=== PATIENT | male | born 1960 | race Caucasian/White ===

== ENCOUNTER 2022-05-28 11:09 | Inpatient (IN) | payer SELFPAY ==
[2022-05-28] VITALS (129 sets, daily range): BP systolic 81–180; BP diastolic 54–121; PULSE 72–142; RESP 12–27; O2SAT 73–100; BMI 23.6; BMI 21.1
--- NOTE | 2022-05-28 11:33 | CT_ITS ---
WS: [id number] CT HEAD TECHNIQUE: Noncontrast CT of the head obtained from the skullbase to the vertex. CLINICAL INFORMATION: seizure new onset COMPARISON: None. DLP: 2121.[address] scans at [facility] use at least one of these dose optimization techniques: automated e xposure control; mA and/or kV adjustment per patient size (includes targeted exams where dose is matc hed to clinical indication); or iterative reconstruction. FINDINGS: No evidence of intracranial hemorrhage or mass effect. Ventricular system and basal cisterns are kilgore nt. Mild small vessel changes with mild parenchymal volume loss. No extra-axial fluid collections. No evidence of mass or mass effect. Vascular calcification. Mild mucosal thickening in the paranasal sinuses with polypoid mucosal thickening. Mastoid air cells are well aerated. Vascular calcification. CT/CT head wo con* [id number] IMPRESSION: 1. No evidence of intracranial hemorrhage or mass effect. 2. Mild small vessel changes. Mild parenchymal volume loss. 3. No acute intracranial findings.
--- NOTE | 2022-05-28 11:35 | W.ED.SEIZURE ---
HPI - Seizure General: Chief Complaint: Seizure Stated Complaint: Post Seizure Time Seen by Provider: 05/28/22 11:12 History of Present Illness: HPI Narrative: Patient is brought in by EMS with concerns for a seizure. Apparently patient was traveling home with family in the back of the vehicle when he started having seizure-like activity. The family pulled over and called EMS who met them on the side of the road. Per EMS the patient has no history of seizures. When I walked into the room the patient was in soft restraints due to confusion, however he was alert and oriented when I arrived and I was able to undo the restraints. He states he does not know why he is here but tells me who he is, what year it is, where he was headed and where he lives. He is somewhat somnolent on exam, but easily answers questions and performs commands appropriately. He is mildly tachycardic. He does admit to drinking yesterday, however states he does not drink every day. He did receive Ativan in route. Associated symptoms: Deny chest pain or fever(s) Review of Systems Const: Denies: fever(s) or body aches Eyes: Denies: change in vision or blurry vision ENMT: Denies: throat pain or odynophagia Card: Denies: chest pain or palpitations Resp: Denies: dyspnea or productive cough GI: Denies: abdominal pain, nausea or vomiting : Denies: flank pain or dysuria Musc: Denies: neck pain or back pain Skin/Breast: Denies: rash or pruritus Neuro: Denies: headache(s) or numbness in extremities Psych: Denies: anxiety or change in appetite Endo: Denies: polyuria or excessive sweating Physical Exam Const: COMMON NORMALS: no acute distress, patient oriented x3 and healthy appearing OTHER: Somnolent throughout exam, however easily awakens to voice and answers questions appropriately HENMT: COMMON NORMALS: normocephalic and atraumatic HEAD & SCALP: normocephalic and atraumatic OTHER: Bruising to the anterior tongue Eye: COMMON NORMALS: Equal, round and reactive pupils present and EOMs intact bilaterally PUPIL: Yes Equal, round and reactive pupils present OTHER: Bilateral conjunctival injection Neck/C-Spine: COMMON NORMALS: full ROM and supple Resp: COMMON NORMALS: normal respiratory effort, No retractions and No use of accessory muscles Cardio: COMMON NORMALS: regular rhythm RHYTHM: regular rhythm OTHER: Tachycardia GI: COMMON NORMALS: Normal to inspection, nondistended, normoactive bowel sounds present, Soft to palpation and non-tender PALPATION: Yes Soft to palpation Back/Pelvis: COMMON NORMALS: thoracic and lumbar spine normal to inspection and no thoracic nor lumbar tenderness Extremity: COMMON NORMALS: normal to inspection and full ROM Neuro: COMMON NORMALS: patient oriented x3 Psych: COMMON NORMALS: mental status grossly normal and cooperative Skin: COMMON NORMALS: no rashes or lesions noted and no wounds GENERAL SKIN EXAM: no rashes or lesions noted Course Vital Signs: Vital signs: Vital Signs Pulse Rate 102 H 05/28/22 14:15 Respiratory Rate 19 H 05/28/22 14:15 Blood Pressure 92/65 05/28/22 14:00 Pulse Oximetry 96 05/28/22 14:15 Oxygen Delivery Me thod 05/28/22 11:11 MDM - Seizure MDM Narrative Medical decision making narrative: Patient is brought in by EMS with concerns for a seizure. Apparently patient was traveling home with family in the back of the vehicle when he started having seizure-like activity. The family pulled over and called EMS who met them on the side of the road. Per EMS the patient has no history of seizures. When I walked into the room the patient was in soft restraints due to confusion, however he was alert and oriented when I arrived and I was able to undo the restraints. He states he does not know why he is here but tells me who he is, what year it is, where he was headed and where he lives. He is somewhat somnolent on exam, but easily answers questions and performs commands appropriately. He is mildly tachycardic. He does admit to drinking yesterday, however states he does not drink every day. He did receive Ativan in route. Will check labs, CT, and reassess. On reassessment the patient has become confused and combative. We had to put soft restraints on his arms to keep him from pulling the IV out. We gave him IM Haldol. I discussed the case with the cosmetic surgeon and we will start him on a Precedex drip and admit to the ICU for further work-up and treatment of his hyponatremia and alcohol withdrawal seizure Lab Data 05/28/22 13:33 05/28/22 13:33 Labs: Radiology Impressions Head CT 05/28/22 11:33 IMPRESSION: 1. No evidence of intracranial hemorrhage or mass effect. 2. Mild small vessel changes. Mild parenchymal volume loss. 3. No acute intracranial findings. Laboratory Results WBC 7.5 10^3/uL (4.0-10.0) 05/28/22 13:33 RBC 3.63 10^6/uL (4.1-5.3) L 05/28/22 13:33 Hgb 12.8 g/dL (11.7-16.6) 05/28/22 13:33 Hct 34.3 % (42.0-52.0) L 05/28/22 13:33 MCV 94.5 fl (80-94) H 05/28/22 13:33 MCH 35.3 pg (28.0-34.0) H 05/28/22 13:33 MCHC 37.3 g/dL (30.0-36.0) H 05/28/22 13:33 RDW 13.0 % (12.1-15.1) 05/28/22 13:33 Plt Count 162 10^3/cmm (130-400) 05/28/22 13:33 MPV 9.7 fL (7.4-10.4) 05/28/22 13:33 Neut % (Auto) 86.3 % 05/28/22 13:33 Lymph % (Auto) 5.2 % 05/28/22 13:33 [place] % (Auto) 7.6 % 05/28/22 13:33 Eos % (Auto) 0.1 % 05/28/22 13:33 Baso % (Auto) 0.3 % 05/28/22 13:33 Neut # (Auto) 6.44 10^3/uL (1.8-7.7) 05/28/22 13:33 Lymph # (Auto) 0.4 10^3/uL (0.8-4.8) L 05/28/22 13:33 [place] # (Auto) 0.6 10^3/uL (0.2-0.9) 05/28/22 13:33 Eos # (Auto) 0.0 10^3/uL (0.0-0.8) 05/28/22 13:33 Baso # (Auto) 0.0 10^3/uL (0.0-0.1) 05/28/22 13:33 Nucleated RBC % (auto) 0 % 05/28/22 13:33 Nucleated RBCs # 0.0 /100WBC 05/28/22 13:33 Sodium 118 mmol/L (136-145) L* 05/28/22 13:33 Potassium 2.7 mmol/L (3.5-5.1) L* 05/28/22 13:33 Chloride 74 mmol/L (98-107) L 05/28/22 13:33 Carbon Dioxide 31 mmol/L (22-29) H 05/28/22 13:33 Anion Gap 15.7 (5-19) 05/28/22 13:33 BUN 4 mg/dL (8-23) L 05/28/22 13:33 Creatinine 0.8 mg/dL (0.7-1.2) 05/28/22 13:33 GFR Calculation 98.0 mL/min (90-130) 05/28/22 13:33 Glucose 110 mg/dL (65-115) 05/28/22 13:33 Calculated Osmolality 244 mOsm/kg (285-295) L 05/28/22 13:33 Calcium 9.1 mg/dL (8.5-10.5) 05/28/22 13:33 Magnesium 0.9 mg/dL (1.7-2.3) L 05/28/22 13:33 Total Bilirubin 1.0 mg/dL (0.15-1.2) 05/28/22 13:33 AST 84 U/L (0-40) H 05/28/22 13:33 ALT 48 U/L (0-41) H 05/28/22 13:33 Alkaline Phosphatase 124 U/L (40-130) 05/28/22 13:33 Total Protein 7.0 g/dL (6.6-8.7) 05/28/22 13:33 Albumin 3.8 g/dL (3.5-5.2) 05/28/22 13:33 Globulin 3.2 g/dL (1.3-4.6) 05/28/22 13:33 Ethyl Alcohol < 10 mg/dL (0-10) 05/28/22 13:33 Critical Care Time Critical Care Time: Critical Care Time: Yes Total Critical Care Time: 75 Attestation: This case had a high probability of a clinically significant, sudden, or life threatening deterioration of this patient's condition which required my full and direct attention, intervention and personal management. Discharge Plan Discharge Patient Disposition: Admitted As Inpatient Clinical Impression: Alcohol withdrawal seizure, Hyponatremia, Mental status alteration Condition: Stable Coding Level of Care Code ED Map And Chart Mounter for Agnes Fwlaxmi Exam Comprehensive
[2022-05-28] MEDS: LORazepam 2 mg/mL INJ 1 mL 1 MG IVP (12:50)
[2022-05-28 13:44] LABS: Basophils % 0.3 %; Eosinophils % 0.1 %; Hematocrit 34.3 % (42.0-52.0); Hemoglobin 12.8 g/dL (11.7-16.6); Lymphocytes # 0.4 10^3/uL (0.8-4.8); Lymphocytes % 5.2 %; Mean Corpuscular HGB Conc 37.3 g/dL (30.0-36.0); Mean Corpuscular Hemoglobin 35.3 pg (28.0-34.0); Mean Corpuscular Volume 94.5 fl (80-94); Mean Platelet Volume 9.7 fL (7.4-10.4); Monocytes # 0.6 10^3/uL (0.2-0.9); Monocytes % 7.6 %; Neutrophils # 6.44 10^3/uL (1.8-7.7); Neutrophils % 86.3 %; Nucleated Red Blood Cells % 0 %; Platelet Count 162 10^3/cmm (130-400); Red Blood Count 3.63 10^6/uL (4.1-5.3); White Blood Count 7.5 10^3/uL (4.0-10.0)
[2022-05-28] MEDS: sodium chloride 0.9% 1,000 ML 999 ML IV (13:45)
[2022-05-28] MEDS: PHENobarbital 130 mg/mL SDV 1 mL 260 MG IV (13:47)
[2022-05-28] MEDS: haloperidol inj 5 mg/mL INJ 1 mL IM (14:11)
[2022-05-28 14:14] LABS: Alanine Aminotransferase 48 U/L (0-41); Albumin Level 3.8 g/dL (3.5-5.2); Alkaline Phosphatase 124 U/L (40-130); Aspartate Amino Transferase 84 U/L (0-40); Blood Urea Nitrogen 4 mg/dL (8-23); Calcium 9.1 mg/dL (8.5-10.5); Carbon Dioxide 31 mmol/L (22-29); Chloride 74 mmol/L (98-107); Globulin 3.2 g/dL (1.3-4.6); Glucose 110 mg/dL (65-115); Osmolality Calculated 244 mOsm/kg (285-295)
[2022-05-28 14:30] LABS: Alcohol Level < 10 mg/dL (0-10); Anion Gap 15.7 (5-19)
[2022-05-28 14:34] LABS: Potassium 2.7 mmol/L (3.5-5.1); Sodium 118 mmol/L (136-145)
[2022-05-28 14:35] LABS: Magnesium 0.9 mg/dL (1.7-2.3)
[2022-05-28] MEDS: magnesium sulfate premix 2 GM/50 ML PIGGYBACK IV (15:42)
[2022-05-28] MEDS: potassium chloride premix 100 ML 25 MEQ IV (15:43)
[2022-05-28 16:06] LABS: Amphetamines Screen Urine Negative (Negative); Barbiturates Screen Urine Negative (Negative); Benzodiazepines Screen Urine Positive (Negative); Cocaine Screen Urine Negative (Negative); Glucose Urine UA Norm (Normal); Opiate Screen Urine Negative (Negative); PCP Screen Urine Negative (Negative); Protein Urine 1+ (Negative); Specific Gravity, Urine 1.015 (1.005-1.030); THC Screen Urine Negative (Negative); Urine Appearance Clear (CLEAR); Urine Color Yellow (Yellow); pH Urine 6 (5-7)
[2022-05-28 16:07] LABS: Add Urine Culture? No; Add Urine Microscopic? YES; Bacteria Urine TRACE /hpf; Bilirubin Urine Neg (Negative); Blood Urine Neg (Negative); Ketones Urine 1+ (Negative); Leukocyte Esterase Urine Negative (Negative); Nitrate Urine Negative (Negative); Urobilinogen Urine Norm (Negative)
[2022-05-28] MEDS: dexmedetomidine 400 MCG in sodium chloride 0.9% (100 ml) 100 ML IV (17:06)
--- NOTE | 2022-05-28 17:15 | XR_ITS ---
WS: [id number] Portable AP upright chest, 05/28/2022 Clinical Data: evaluate for aspiration Comparison: None. Findings: No nodules, masses or effusions are seen. The heart is normal. The pulmonary vascularity is not increased. No pneumonia or pneumothorax is seen. There is a dextroscoliosis. The aortic arch mark ws mild tortuosity. Monitor leads are on the chest wall. XR/XR chest 1V portable [id number] Impression: Atherosclerosis.
--- NOTE | 2022-05-28 17:21 | PM.HP ---
Providers/Chief Complaint Admitting Physician: Jane Chamberlain MD Chief Complaint: Post Seizure History of Present Illness Mike Peters is a 62 year old male brought by his family due to reportedly witnessed seizure. History is not directly available as family is not at bedside and patient is completely altered. Reportedly patient was in his usual state of health, he was picked up by his son and was being traveling from [place] to [place]. His son noted him to be having a seizure in the backseat, described as shaking involving all extremities. He has been confused thereafter. Patient has not had any seizures in the past. Reportedly patient is a daily alcohol drinker, he was living with his other son and has been drinking over the past many days, no alcohol consumption over the last [address] head is normal. No past history of seizure disorder. Reportedly no past medical history otherwise. Review of Systems General: Reports: ROS unobtainable due to mental status Medications/Allergies Home Medications Medication Instructions Recorded Confirmed Last Taken Type alprazolam 0.5 mg tablet 0.5 mg PO BID PRN Anxiety 05/28/22 05/28/22 Unknown History omeprazole 40 mg capsule,delayed 40 mg PO DAILY 05/28/22 05/28/22 Unknown History release Allergies Allergy/AdvReac Type Severity Reaction Status Date / Time Penicillins Allergy Unknown Unknown Verified 05/28/22 11:51 Vitals/I&O/Wt Last Vital Signs Pulse 116 H 05/28/22 16:15 Resp 19 H 05/28/22 16:15 BP 126/82 05/28/22 16:15 Pulse Ox 97 05/28/22 16:15 O2 Del Method 05/28/22 11:11 05/28/22 05/28/22 05/28/22 06:59 14:59 22:59 Intake Total 1050 / 1050 Balance 1050 / 1050 Weight last 48 hrs Weight 72.575 kg Physical Exam Narrative: General: Confused, disoriented. Able to tell me his name is Mike Peters, however otherwise states that he is 8 years old. Does not know where he is. Unable to tell me his date of . He has been speaking in incoherent sentences since arrival. HEENT: PERRLA, pupils bilaterally equal and reactive, pallors not present Chest: Normal vesicular breath sounds anteriorly CVS: S1-S2 regular, no murmurs, no tachycardia, no gallops, no rubs Abdomen: Soft, nontender, no organomegaly, bowel sounds present Neuro: Confused, moving all extremities in bed, though does not necessarily follow commands Extremities: No edema clubbing or cyanosis Data 05/28/22 13:33 05/28/22 13:33 Other Labs: Radiology Impressions Head CT 05/28/22 11:33 IMPRESSION: 1. No evidence of intracranial hemorrhage or mass effect. 2. Mild small vessel changes. Mild parenchymal volume loss. 3. No acute intracranial findings. Laboratory Results WBC 7.5 10^3/uL (4.0-10.0) 05/28/22 13:33 RBC 3.63 10^6/uL (4.1-5.3) L 05/28/22 13:33 Hgb 12.8 g/dL (11.7-16.6) 05/28/22 13:33 Hct 34.3 % (42.0-52.0) L 05/28/22 13:33 MCV 94.5 fl (80-94) H 05/28/22 13:33 MCH 35.3 pg (28.0-34.0) H 05/28/22 13:33 MCHC 37.3 g/dL (30.0-36.0) H 05/28/22 13:33 RDW 13.0 % (12.1-15.1) 05/28/22 13:33 Plt Count 162 10^3/cmm (130-400) 05/28/22 13:33 MPV 9.7 fL (7.4-10.4) 05/28/22 13:33 Neut % (Auto) 86.3 % 05/28/22 13:33 Lymph % (Auto) 5.2 % 05/28/22 13:33 [place] % (Auto) 7.6 % 05/28/22 13:33 Eos % (Auto) 0.1 % 05/28/22 13:33 Baso % (Auto) 0.3 % 05/28/22 13:33 Neut # (Auto) 6.44 10^3/uL (1.8-7.7) 05/28/22 13:33 Lymph # (Auto) 0.4 10^3/uL (0.8-4.8) L 05/28/22 13:33 [place] # (Auto) 0.6 10^3/uL (0.2-0.9) 05/28/22 13:33 Eos # (Auto) 0.0 10^3/uL (0.0-0.8) 05/28/22 13:33 Baso # (Auto) 0.0 10^3/uL (0.0-0.1) 05/28/22 13:33 Nucleated RBC % (auto) 0 % 05/28/22 13:33 Nucleated RBCs # 0.0 /100WBC 05/28/22 13:33 Sodium 118 mmol/L (136-145) L* 05/28/22 13:33 Potassium 2.7 mmol/L (3.5-5.1) L* 05/28/22 13:33 Chloride 74 mmol/L (98-107) L 05/28/22 13:33 Carbon Dioxide 31 mmol/L (22-29) H 05/28/22 13:33 Anion Gap 15.7 (5-19) 05/28/22 13:33 BUN 4 mg/dL (8-23) L 05/28/22 13:33 Creatinine 0.8 mg/dL (0.7-1.2) 05/28/22 13:33 GFR Calculation 98.0 mL/min (90-130) 05/28/22 13:33 Glucose 110 mg/dL (65-115) 05/28/22 13:33 Calculated Osmolality 244 mOsm/kg (285-295) L 05/28/22 13:33 Calcium 9.1 mg/dL (8.5-10.5) 05/28/22 13:33 Magnesium 0.9 mg/dL (1.7-2.3) L 05/28/22 13:33 Total Bilirubin 1.0 mg/dL (0.15-1.2) 05/28/22 13:33 AST 84 U/L (0-40) H 05/28/22 13:33 ALT 48 U/L (0-41) H 05/28/22 13:33 Alkaline Phosphatase 124 U/L (40-130) 05/28/22 13:33 Total Protein 7.0 g/dL (6.6-8.7) 05/28/22 13:33 Albumin 3.8 g/dL (3.5-5.2) 05/28/22 13:33 Globulin 3.2 g/dL (1.3-4.6) 05/28/22 13:33 Urine Color Yellow (Yellow) 05/28/22 15:17 Urine Appearance Clear (CLEAR) 05/28/22 15:17 Urine pH 6 (5-7) 05/28/22 15:17 Ur Specific [place] 1.015 (1.005-1.030) 05/28/22 15:17 Urine Protein 1+ (Negative) H 05/28/22 15:17 Urine Glucose (UA) Norm (Normal) 05/28/22 15:17 Urine Ketones 1+ (Negative) H 05/28/22 15:17 Urine Blood Neg (Negative) 05/28/22 15:17 Urine Nitrate Negative (Negative) 05/28/22 15:17 Urine Bilirubin Neg (Negative) 05/28/22 15:17 Urine Urobilinogen Norm mg/dL (Negative) 05/28/22 15:17 Ur Leukocyte Esterase Negative (Negative) 05/28/22 15:17 Urine RBC None /hpf (0-2) 05/28/22 15:17 Urine WBC None /hpf (0-5) 05/28/22 15:17 Ur Squamous Epith Cells None /hpf (0-5) 05/28/22 15:17 Amorphous Sediment Not Reportable 05/28/22 15:17 Urine Bacteria Trace /hpf (NONE) 05/28/22 15:17 Urine Opiates Screen Negative ng/mL (Negative) 05/28/22 15:17 Ur Barbiturates Screen Negative ng/mL (Negative) 05/28/22 15:17 Ur Phencyclidine Scrn Negative ng/mL (Negative) 05/28/22 15:17 Ur Amphetamines Screen Negative ng/mL (Negative) 05/28/22 15:17 U Benzodiazepines Scrn Positive ng/mL (Negative) H 05/28/22 15:17 Urine Cocaine Screen Negative ng/mL (Negative) 05/28/22 15:17 U Marijuana (THC) Screen Negative ng/mL (Negative) 05/28/22 15:17 Ethyl Alcohol < 10 mg/dL (0-10) 05/28/22 13:33 A&P Assessment and plan (1) Mental status alteration: (2) Hyponatremia: (3) Seizures: Plan Patient brought to the emergency room today by family with reported history of seizures, this is a first for the patient. CT of the head is unremarkable. No evidence of bleeding or stroke. Reportedly patient has been in his usual state of health up until this episode. Patient is currently confused, disoriented. This may be related to postictal state. Differentials at this time for new onset seizure include alcohol withdrawal given history of daily alcohol consumption. We will admit him to the ICU, for his agitation we will start him on Precedex drip. And CIWA protocol. Alternate differentials include seizure due to hyponatremia. His sodium of 118, unknown past baseline. We will give 100 cc of 3% normal saline and monitor sodium every 6 hours. Aim for correction is 6 to 12 mEq in the next 24 hours. Check TSH. Check ammonia. On telemetry patient noted to have ST segment depression, unknown if this is new or old, unknown if he has a history of CAD, check EKG and troponin series. Check COVID and influenza antigens. Check blood culture. Unknown if he has a history of past drug use. U tox is negative except for benzodiazepine, however his home medication list Xanax. Will be admitted to ICU for further care. Currently he is maintaining his airway. Will check ABG and CXR Further orders based on clinical course. Attestations Medical Necessity Statement*: Greater than 2 midnight admission is anticipated for new onset of seizure in an adult, severe hyponatremia, possibly alcohol withdrawal. Critical Care Time: The high probability of a clinically significant, sudden or life threatening deterioration of the patient's [neuro, respiratory, cardiac] system(s) required my full and direct attention, intervention and personal management. The critical care time is as shown. This time is in addition to time spent performing any reported procedures but includes the following: [x] Data and vital sign review and interpretation [x] Patient assessment, examination and intervention [x] Documentation [x] Medication orders and management Critical Care Time (min): 50 Coding Level of Care Code Acute Registration Officer for Agnes Quispe Diagnoses Mental status alteration R41.82 Hyponatremia E87.1 Seizures R56.9
[2022-05-28 17:39] LABS: ABG PCO2 45.6 mmHg (35-45); ABG PH Result 7.49 (7.35-7.45); Arterial Blood Gas Hematocrit 39.3 % (42-52); Base Excess ABG 9.9 mmol/L (-2.0-2.0); Blood Gas Allen Test Pos; Blood Gas Sample Site Radial, left; HCO3 ABG 34.5 mmol/L (22-26)
[2022-05-28 18:31] LABS: Blood Gas Sample Type Venous; Oxygen Device ROOM AIR
[2022-05-28 18:41] LABS: Lactic Sepsis W/Reflex 1.8 mmol/L (0.5-2.2)
[2022-05-28 18:47] LABS: Sodium 120 mmol/L (136-145)
[2022-05-28 18:49] LABS: Troponin(5th) Baseline 35 ng/L (0-15)
[2022-05-28 18:56] LABS: Thyroid Stimulating Hormone 0.23 uIU/mL (0.27-4.20)
[2022-05-28] MEDS: enoxaparin 40 mg/0.4 mL Syringe SUBCUT (19:18)
[2022-05-28 20:25] LABS: Troponin 5 2HR 32.36 ng/L (0-15)
[2022-05-28 20:29] LABS: Troponin 5 2HR Delta -2.64 ABS# (0-10)
--- NOTE | 2022-05-28 20:30 | PC.NURSE ---
Transfer Note Patient transferred to ICU from ER via stretcher. Handoff received from CASSIE Short. Patient oriented to environment and equipment. Covering service notified. Orders reviewed and will continue to monitor. Family and/or outbound telemarketing representative notified. Patient lethargic upon arrival to ICU, unable to complete admission & immunization assessments at this time. Transferred to ICU on room air, no wounds or skin issues noted at this time. Precedex infusing upon arrival, please see MAR for detail. All belongings including shoes, socks, belt, jeans, shirt, flannel, jacket, hat, glasses placed at bedside. Home medications placed in pyxis.
[2022-05-28] MEDS: sodium chloride 3% 100 ML in empty flexible container 1 EACH 200 ML IV (21:05)
[2022-05-28] MEDS: cefTRIAXone 1,000 MG in sodium chloride 0.9% (plus) 50 ML 100 MG IV (21:21)
[2022-05-29] VITALS (252 sets, daily range): BP systolic 84–140; BP diastolic 54–89; PULSE 48–108; RESP 17; O2SAT 89–99; BMI 20.9
[2022-05-29 00:09] LABS: Sodium 122 mmol/L (136-145)
[2022-05-29 01:22] LABS: Basophils % 0.5 %; Eosinophils # 0.1 10^3/uL (0.0-0.8); Eosinophils % 1.6 %; Hematocrit 31.7 % (42.0-52.0); Hemoglobin 11.5 g/dL (11.7-16.6); Lymphocytes % 16.7 %; Mean Corpuscular HGB Conc 36.3 g/dL (30.0-36.0); Mean Corpuscular Hemoglobin 35.1 pg (28.0-34.0); Mean Corpuscular Volume 96.6 fl (80-94); Mean Platelet Volume 10.1 fL (7.4-10.4); Monocytes # 0.6 10^3/uL (0.2-0.9); Monocytes % 10.2 %; Neutrophils # 4.34 10^3/uL (1.8-7.7); Neutrophils % 70.2 %; Nucleated Red Blood Cells % 0.3 %; Platelet Count 152 10^3/cmm (130-400); Red Blood Count 3.28 10^6/uL (4.1-5.3); Red Cell Distribution Width 13.2 % (12.1-15.1); White Blood Count 6.2 10^3/uL (4.0-10.0)
[2022-05-29 01:29] LABS: INR 1.13 (0.8-1.2)
[2022-05-29 01:40] LABS: Troponin 5 6HR 29.63 ng/L (0-15)
[2022-05-29 01:43] LABS: Alanine Aminotransferase 42 U/L (0-41); Albumin Level 3.3 g/dL (3.5-5.2); Alkaline Phosphatase 105 U/L (40-130); Anion Gap 14.5 (5-19); Aspartate Amino Transferase 85 U/L (0-40); Blood Urea Nitrogen 3 mg/dL (8-23); Calcium 8.3 mg/dL (8.5-10.5); Carbon Dioxide 29 mmol/L (22-29); Chloride 84 mmol/L (98-107); Globulin 2.8 g/dL (1.3-4.6); Glomerular Filtration Rate 136.5 mL/min (90-130); Glucose 106 mg/dL (65-115); Magnesium 1.4 mg/dL (1.7-2.3); Osmolality Calculated 257 mOsm/kg (285-295); Sodium 125 mmol/L (136-145); Total Bilirubin 0.8 mg/dL (0.15-1.2); Total Protein 6.1 g/dL (6.6-8.7); Troponin 5 6HR Delta -5.37 ng/L (0-12)
[2022-05-29 01:51] LABS: Potassium 2.5 mmol/L (3.5-5.1)
[2022-05-29] MEDS: potassium chloride premix 100 ML 25 MEQ IV ×2 (02:19→06:39)
--- NOTE | 2022-05-29 02:19 | PC.NURSE ---
Critical Lab Results Patient potassium critically low, informed assembler 1st shift hospitalist. Received orders for 80 meq potassium chloride IV.
[2022-05-29 05:48] LABS: Sodium 124 mmol/L (136-145)
[2022-05-29] MEDS: dexmedetomidine 400 MCG in sodium chloride 0.9% (100 ml) 100 ML 13.21 MCG IV ×2 (09:00→18:31)
[2022-05-29] MEDS: pantoprazole DR 40 mg Tablet PO (10:00)
[2022-05-29] MEDS: multivitamin therapeutic Tablet 1 TAB PO (10:00)
[2022-05-29] MEDS: folic acid 1 mg Tablet PO (10:00)
[2022-05-29] MEDS: thiamine 100 mg Tablet PO (10:00)
--- NOTE | 2022-05-29 10:53 | PC.CHAP ---
Pastoral Care Encounter/Spiritual Assessment Type of Contact [] Declined cigar making machine supervisor visit [] Patient/Family/Request visit [] Outpatient visit [] Follow-up visit [] Physician referral [] Code/Alert [x] Routine visit [] Staff referral [] Actively dying [x] Patient sleeping [] Family support [] [] Out of room [] Palliative care [] [] Receiving care in room [] Pre-surgical visit [] Trauma [] Long length of stay [x] ICU visit [] Other: Relational/Emotional Strength [] Patient feels connected with others/family/visitors/staff [] Distress [] Loneliness/isolation [] Abandonment Spirituality of Patient [] Person of Kaycee [] Attends Orthodox of their Kaycee [] Believes in Prayer [] Reads Bible or Catholic materials [] There are Spiritual issues to be addressed Contract Preparer Interventions [x] Prayer [] Active listening [] Non-anxious presence [] Spiritual/emotional support [] Crisis/trauma care [] Spiritual counseling [] Bereavement support [] Provided bereavement packet [] Provided Bible/devotional materials [] Provided toy/stuffed animal, coloring book to patient or family member [] Provided Communion [] Anointing/[place] [] Salvation [x] Completed spiritual assessment [] Other: Impact on Illness or Injury [] Angry [] Fearful [] Anxious [] Often cries [] Exhaustion [] Unable to work [] Unable to attend yarsani [] Unable to walk/stand [] Unable to read [] Unable to drive [] Unable to eat/drink [] Unable to sleep [] Unable to be with family [] Patient intubated [] Other: Summary Time spent with patient
[2022-05-29 12:15] LABS: Sodium 125 mmol/L (136-145)
[2022-05-29 18:07] LABS: Sodium 127 mmol/L (136-145)
[2022-05-29] MEDS: enoxaparin 40 mg/0.4 mL Syringe SUBCUT (18:29)
[2022-05-29] MEDS: cefTRIAXone 1,000 MG in sodium chloride 0.9% (plus) 50 ML 100 MG IV (18:29)
--- NOTE | 2022-05-29 18:48 | P.PN_ITS ---
Subjective Subjective: No other witnessed seizures since admission. He was agitated overnight, pulled out his Wiley and IV lines. He is currently in soft restraints. Precedex is continuing. Needed several pushes of Ativan last night. Medications: Reviewed: Yes Vitals/I&O/Wt Last Vital Signs Pulse 64 05/29/22 16:15 Resp 17 05/29/22 14:00 BP 129/75 05/29/22 16:15 Pulse Ox 94 05/29/22 16:15 O2 Del Method 05/29/22 08:00 05/29/22 05/29/22 05/29/22 06:59 14:59 22:59 Intake Total 186.269 / 1504.000 104 / 104 Output Total 750 / 750 1500 / 1500 900 / 2400 Balance -563.731 / 754.000 -1500 / -1500 -796 / -2296 Weight last 48 hrs Weight 64.495 kg Weight 64.864 kg Weight 72.575 kg Physical Exam Narrative: General: No acute distress, he is able to tell me his name and his correct date of today. He is still disoriented as to his whereabouts. HEENT: PERRLA, pupils bilaterally equal and reactive, pallors not present Chest: Normal vesicular breath sounds, no added sounds, equal good air entry bilaterally CVS: S1-S2 regular, no murmurs, no tachycardia, no gallops, no rubs Abdomen: Soft, nontender, no organomegaly, bowel sounds present Neuro: moves all extremities while laying in bed, no chest pain, dyspnea, palpitations, syncope. Urinary Catheter Management: Wiley: Cath Placed During This Visit: yes Reason for Continuing Indwelling Catheter: Accurate Measurement of Urinary Output in Critically Ill Patients Urinary Catheter Date of Insertion: 05/28/22 Data 05/29/22 00:31 05/29/22 17:38 Micro: Microbiology 05/28/22 18:05 Blood Culture - Preliminary Blood NEGATIVE TO DATE 05/28/22 17:45 Blood Culture - Preliminary Blood NEGATIVE TO DATE A&P Assessment and plan (1) Mental status alteration: (2) Hyponatremia: (3) Seizures: Plan Patient brought to the emergency room today by family with reported history of seizures, this is a first for the patient. CT of the head is unremarkable. No evidence of bleeding or stroke. Reportedly patient has been in his usual state of health up until this episode. Patient is currently confused, disoriented. This may be related to postictal state vs alcohol withdrawal No noted seizure episodes in the ER Na corrected 118 to 124 after 3% saline, will avoid further correction today Alternate differentials include seizure due to hyponatremia. His sodium of 118, unknown past baseline. We will give 100 cc of 3% normal saline and monitor sodium every 6 hours. Aim for correction is 6 to 12 mEq in the next 24 hours. low TSH, 0.23, will check t3 and t4 . Check ammonia. On telemetry patient noted to have ST segment depression, troponon series witho ut significant delta Check COVID and influenza antigens, pending . Check blood culture, pending. Unknown if he has a history of past drug use. U tox is negative except for benzodiazepine, however his home medication list Xanax. Will be admitted to ICU for further care. Currently he is maintaining his airway. Unable to get ABG Further orders based on clinical course. Attestations Medical Necessity Statement*: continues to be altered, needs precedex infusion Critical Care Time: The high probability of a clinically significant, sudden or life threatening deterioration of the patient's [neuro] system(s) required my full and direct attention, intervention and personal management. The critical care time is as shown. This time is in addition to time spent performing any reported procedures but includes the following: [x] Data and vital sign review and interpretation [x] Patient assessment, examination and intervention [x] Documentation [x] Medication orders and management Critical Care Time (min): 40 Coding Level of Care Code Acute Air Traffic Systems Technician for [facility] Brittaney Diagnoses Mental status alteration R41.82 Hyponatremia E87.1 Seizures R56.9
[2022-05-30] VITALS (83 sets, daily range): BP systolic 95–141; BP diastolic 60–93; PULSE 51–107; TEMP 36.2–36.7; O2SAT 87–99; BMI 20.9
[2022-05-30 00:03] LABS: Sodium 127 mmol/L (136-145)
[2022-05-30 03:00] LABS: Basophils # 0.1 10^3/uL (0.0-0.1); Basophils % 1.1 %; Eosinophils # 0.3 10^3/uL (0.0-0.8); Eosinophils % 4.8 %; Hemoglobin 12.1 g/dL (11.7-16.6); Lymphocytes # 1.9 10^3/uL (0.8-4.8); Lymphocytes % 28.4 %; Mean Corpuscular HGB Conc 34.6 g/dL (30.0-36.0); Mean Corpuscular Hemoglobin 34.7 pg (28.0-34.0); Mean Corpuscular Volume 100.3 fl (80-94); Monocytes # 0.5 10^3/uL (0.2-0.9); Neutrophils % 57.1 %; Nucleated Red Blood Cells % 0 %; Platelet Count 147 10^3/cmm (130-400); Red Blood Count 3.49 10^6/uL (4.1-5.3); Red Cell Distribution Width 13.7 % (12.1-15.1); White Blood Count 6.7 10^3/uL (4.0-10.0)
[2022-05-30 03:31] LABS: Alanine Aminotransferase 56 U/L (0-41); Albumin Level 3.3 g/dL (3.5-5.2); Alkaline Phosphatase 108 U/L (40-130); Anion Gap 16.9 (5-19); Aspartate Amino Transferase 105 U/L (0-40); Blood Urea Nitrogen 8 mg/dL (8-23); Calcium 8.5 mg/dL (8.5-10.5); Carbon Dioxide 25 mmol/L (22-29); Free T4 Free Thyroxine 1.47 ng/dL (0.82-1.77); Globulin 2.9 g/dL (1.3-4.6); Glucose 75 mg/dL (65-115); T3 Free 1.8 PG/ML (2.0-4.4); Total Bilirubin 0.6 mg/dL (0.15-1.2); Total Protein 6.2 g/dL (6.6-8.7)
[2022-05-30 03:46] LABS: Chloride 88 mmol/L (98-107); Osmolality Calculated 263 mOsm/kg (285-295); Sodium 128 mmol/L (136-145)
[2022-05-30 04:16] LABS: Potassium 2.9 mmol/L (3.5-5.1)
[2022-05-30] MEDS: potassium chloride ER 20 mEq Tablet 40 MEQ PO (04:47)
[2022-05-30] MEDS: dexmedetomidine 400 MCG in sodium chloride 0.9% (100 ml) 100 ML 9.44 MCG IV (07:00)
--- NOTE | 2022-05-30 07:04 | PC.NURSE ---
Shift Note Frequent safety and comfort rounds continue. Orders and/or nursing care completed as indicated. Patient monitored for response to intervention and treatment(s). Education provided includes treatment plan. Patient verbalized understanding of teaching. Patient had an uneventful shift, remains on room air & is alert/oriented x4. Precedex infusing per protocol please see MAR for infusion rate. No wounds or skin issues noted at this time. Wiley catheter drained 1100 mls of urine overnight. Will continue to monitor.
[2022-05-30] MEDS: folic acid 1 mg Tablet PO (08:14)
[2022-05-30] MEDS: thiamine 100 mg Tablet PO (08:14)
[2022-05-30] MEDS: pantoprazole DR 40 mg Tablet PO (08:14)
[2022-05-30] MEDS: multivitamin therapeutic Tablet 1 TAB PO (08:14)
[2022-05-30 08:31] LABS: Ammonia 23 umol/L (16-60)
--- NOTE | 2022-05-30 10:08 | PC.CHAP ---
Pastoral Care Encounter/Spiritual Assessment Type of Contact [] Declined supervisor printing and stamping visit [] Patient/Family/Request visit [] Outpatient visit [] Follow-up visit [] Physician referral [] Code/Alert [x] Routine visit [] Staff referral [] Actively dying [] Patient sleeping [] Family support [] [] Out of room [] Palliative care [] [x] Receiving care in room [] Pre-surgical visit [] Trauma [] Long length of stay [x] ICU visit [] Other: Relational/Emotional Strength [] Patient feels connected with others/family/visitors/staff [] Distress [] Loneliness/isolation [] Abandonment Spirituality of Patient [] Person of Kaycee [] Attends Scientologist of their Kaycee [] Believes in Prayer [] Reads Bible or Christian materials [] There are Spiritual issues to be addressed Application Systems Administrator Interventions [x] Prayer [] Active listening [] Non-anxious presence [] Spiritual/emotional support [] Crisis/trauma care [] Spiritual counseling [] Bereavement support [] Provided bereavement packet [] Provided Bible/devotional materials [] Provided toy/stuffed animal, coloring book to patient or family member [] Provided Communion [] Anointing/Ten Sleep [] Salvation [x] Completed spiritual assessment [] Other: Impact on Illness or Injury [] Angry [] Fearful [] Anxious [] Often cries [] Exhaustion [] Unable to work [] Unable to attend sikh [] Unable to walk/stand [] Unable to read [] Unable to drive [] Unable to eat/drink [] Unable to sleep [] Unable to be with family [] Patient intubated [] Other: Summary Time spent with patient
--- NOTE | 2022-05-30 11:19 | PC.NURSE ---
Precedex titrated off and Wiley taken out. Patient has been ambulating in room. Discharge instructions gone over and sent with patient. Prescription called into pharmacy.
--- NOTE | 2022-05-30 14:20 | PM.DCS ---
Discharge Providers Date of Admission: 05/28/22 15:21 Date of Discharge: May 30, 2022 Attending Provider at Admission: Jane Chamberlain MD Attending Provider at Discharge: Jane Chamberlain MD Diagnoses at Discharge Discharge Diagnosis (1) Mental status alteration: Status: Acute (2) Hyponatremia: Status: Acute (3) Seizures: Status: Acute (4) Alcohol withdrawal seizure: Status: Acute Reason for Visit Reason for Visit: Post Seizure Hospital Course Hospital Course Mr. Peters is a 62-year-old male who was admitted to the hospital on May 28, 2022 after having a seizure while being in the backseat of his car with his family. Patient was reportedly visiting some family members and traveling back to his usual home with his son when he suddenly developed seizures. Per family, patient has been drinking continuously over the last 10 days, to the point where he had remained inebriated on most days and not had an adequate p.o. intake. Patient has no past history of seizure. He had been alcohol free for about [address] of his head was normal. Sodium was grossly abnormal at 118. Patient was appearing to be clinically dehydrated. He had altered mental status upon admission, he was only alert to self. He was admitted to the hospital and received treatment with 3% hypertonic saline which corrected his sodium from 1 1 8-1 28 by the time of discharge. No further correction is being sought on this inpatient stay to avoid myelinolysis. Additionally more likely explanation was that of alcohol withdrawal seizures. He needed to be on Precedex and received Ativan per [facility] protocols. By the morning of May 30, patient became alert awake and oriented x3. He is able to have a conversation. His family at bedside confirmed that he is in his usual state of health at this time. He is being discharged with recommendations to continue salt supplementation and his diet. Incidentally also noted low TSH and mildly low free T3 levels, recommended to follow-up with primary care provider within a week to address these. A repeat NA is also recommended at this visit. A prescription for Librium for the next 5 days was provided to the patient. Physical Exam Narrative: General: No acute distress, AO x3 HEENT: PERRLA, pupils bilaterally equal and reactive, pallors not present Chest: Normal vesicular breath sounds, no added sounds, equal good air entry bilaterally CVS: S1-S2 regular, no murmurs, no tachycardia, no gallops, no rubs Abdomen: Soft, nontender, no organomegaly, bowel sounds present Neuro: No focal deficits, no facial deformity, AO x3, power 5/5 in all limbs Urinary Catheter Management: Wiley: Cath Placed During This Visit: yes Reason for Continuing Indwelling Catheter: Accurate Measurement of Urinary Output in Critically Ill Patients Urinary Catheter Date of Insertion: 05/28/22 Discharge Data Studies Completed and Pending Completed Studies During Hospitalization Category Date Time Status CT head wo con* [id number] Stat Cat Scan 05/28/22 11:33 Completed CXRP [XR chest 1V portable [id number]] Stat Exams 05/28/22 17:15 Completed Pending at discharge Category Date Time Status ABG ONLY [Arterial Blood Gas W/O Coox] Routine Lab 05/28/22 17:24 Results Blood Culture Stat Lab 05/28/22 18:05 Results Respiratory Panel 2 Routine Lab 05/28/22 17:15 Ordered Radiology Impressions Head CT 05/28/22 11:33 IMPRESSION: 1. No evidence of intracranial hemorrhage or mass effect. 2. Mild small vessel changes. Mild parenchymal volume loss. 3. No acute intracranial findings. Chest X-Ray 05/28/22 17:15 Impression: Atherosclerosis. Laboratory Results WBC 6.7 10^3/uL (4.0-10.0) 05/30/22 02:05 RBC 3.49 10^6/uL (4.1-5.3) L 05/30/22 02:05 Hgb 12.1 g/dL (11.7-16.6) 05/30/22 02:05 Hct 35.0 % (42.0-52.0) L 05/30/22 02:05 MCV 100.3 fl (80-94) H 05/30/22 02:05 MCH 34.7 pg (28.0-34.0) H 05/30/22 02:05 MCHC 34.6 g/dL (30.0-36.0) 05/30/22 02:05 RDW 13.7 % (12.1-15.1) 05/30/22 02:05 Plt Count 147 10^3/cmm (130-400) 05/30/22 02:05 MPV 10.0 fL (7.4-10.4) 05/30/22 02:05 Neut % (Auto) 57.1 % 05/30/22 02:05 Lymph % (Auto) 28.4 % 05/30/22 02:05 [place] % (Auto) 8.0 % 05/30/22 02:05 Eos % (Auto) 4.8 % 05/30/22 02:05 Baso % (Auto) 1.1 % 05/30/22 02:05 Neut # (Auto) 3.80 10^3/uL (1.8-7.7) 05/30/22 02:05 Lymph # (Auto) 1.9 10^3/uL (0.8-4.8) 05/30/22 02:05 [place] # (Auto) 0.5 10^3/uL (0.2-0.9) 05/30/22 02:05 Eos # (Auto) 0.3 10^3/uL (0.0-0.8) 05/30/22 02:05 Baso # (Auto) 0.1 10^3/uL (0.0-0.1) 05/30/22 02:05 Nucleated RBC % (auto) 0 % 05/30/22 02:05 Nucleated RBCs # 0.0 /100WBC 05/30/22 02:05 PT 14.80 SECONDS (12.1-14.9) 05/29/22 00:31 INR 1.13 (0.8-1.2) 05/29/22 00:31 Specimen Type Venous 05/28/22 17:24 Sample Site Radial, left 05/28/22 17:24 ABG pH 7.49 (7.35-7.45) H 05/28/22 17:24 ABG pCO2 45.6 mmHg (35-45) H 05/28/22 17:24 ABG HCO3 34.5 mmol/L (22-26) H 05/28/22 17:24 ABG Base Excess 9.9 mmol/L (-2.0-2.0) H 05/28/22 17:24 Aaron Test Pos 05/28/22 17:24 Hematocrit 39.3 % (42-52) L 05/28/22 17:24 O2 Delivery Device Room air 05/28/22 17:24 FiO2 21.0 % 05/28/22 17:24 Trimmer Machine ID [id number] 05/28/22 17:24 Sodium 128 mmol/L (136-145) L 05/30/22 02:05 Potassium 2.9 mmol/L (3.5-5.1) L 05/30/22 02:05 Chloride 88 mmol/L (98-107) L 05/30/22 02:05 Carbon Dioxide 25 mmol/L (22-29) 05/30/22 02:05 Anion Gap 16.9 (5-19) 05/30/22 02:05 BUN 8 mg/dL (8-23) 05/30/22 02:05 Creatinine 0.8 mg/dL (0.7-1.2) 05/30/22 02:05 GFR Calculation 98.0 mL/min (90-130) 05/30/22 02:05 Glucose 75 mg/dL (65-115) 05/30/22 02:05 Calculated Osmolality 263 mOsm/kg (285-295) L 05/30/22 02:05 Lactic Acid 1.8 mmol/L (0.5-2.2) 05/28/22 17:45 Calcium 8.5 mg/dL (8.5-10.5) 05/30/22 02:05 Magnesium 1.4 mg/dL (1.7-2.3) L 05/29/22 00:31 Total Bilirubin 0.6 mg/dL (0.15-1.2) 05/30/22 02:05 AST 105 U/L (0-40) H 05/30/22 02:05 ALT 56 U/L (0-41) H 05/30/22 02:05 Alkaline Phosphatase 108 U/L (40-130) 05/30/22 02:05 Ammonia 23 umol/L (16-60) 05/30/22 07:57 Troponin T Baseline 35 ng/L (0-15) H 05/28/22 18:05 Troponin T 120 Minute 32.36 ng/L (0-15) H 05/28/22 20:00 Delta Troponin T -2.64 ABS# (0-10) L 05/28/22 20:00 Troponin T Hi Sens 6Hr 29.63 ng/L (0-15) H 05/29/22 00:31 Troponin T Hi Sens 6Hr Delta -5.37 ng/L (0-12) L 05/29/22 00:31 Total Protein 6.2 g/dL (6.6-8.7) L 05/30/22 02:05 Albumin 3.3 g/dL (3.5-5.2) L 05/30/22 02:05 Globulin 2.9 g/dL (1.3-4.6) 05/30/22 02:05 TSH 0.23 uIU/mL (0.27-4.20) L 05/28/22 18:05 Free T4 1.47 ng/dL (0.82-1.77) 05/30/22 02:05 Free T3 1.8 PG/ML (2.0-4.4) L 05/30/22 02:05 Urine Color Yellow (Yellow) 05/28/22 15:17 Urine Appearance Clear (CLEAR) 05/28/22 15:17 Urine pH 6 (5-7) 05/28/22 15:17 Ur Specific [place] 1.015 (1.005-1.030) 05/28/22 15:17 Urine Protein 1+ (Negative) H 05/28/22 15:17 Urine Glucose (UA) Norm (Normal) 05/28/22 15:17 Urine Ketones 1+ (Negative) H 05/28/22 15:17 Urine Blood Neg (Negative) 05/28/22 15:17 Urine Nitrate Negative (Negative) 05/28/22 15:17 Urine Bilirubin Neg (Negative) 05/28/22 15:17 Urine Urobilinogen Norm mg/dL (Negative) 05/28/22 15:17 Ur Leukocyte Esterase Negative (Negative) 05/28/22 15:17 Urine RBC None /hpf (0-2) 05/28/22 15:17 Urine WBC None /hpf (0-5) 05/28/22 15:17 Ur Squamous Epith Cells None /hpf (0-5) 05/28/22 15:17 Amorphous Sediment Not Reportable 05/28/22 15:17 Urine Bacteria Trace /hpf (NONE) 05/28/22 15:17 Urine Opiates Screen Negative ng/mL (Negative) 05/28/22 15:17 Ur Barbiturates Screen Negative ng/mL (Negative) 05/28/22 15:17 Ur Phencyclidine Scrn Negative ng/mL (Negative) 05/28/22 15:17 Ur Amphetamines Screen Negative ng/mL (Negative) 05/28/22 15:17 U Benzodiazepines Scrn Positive ng/mL (Negative) H 05/28/22 15:17 Urine Cocaine Screen Negative ng/mL (Negative) 05/28/22 15:17 U Marijuana (THC) Screen Negative ng/mL (Negative) 05/28/22 15:17 Ethyl Alcohol < 10 mg/dL (0-10) 05/28/22 13:33 Vitals Last Vital Signs Temp 98.1 F 05/30/22 09:00 Pulse 72 05/30/22 09:30 Resp 17 05/29/22 14:00 BP 95/67 05/30/22 10:00 Pulse Ox 99 05/30/22 09:00 O2 Del Method 05/30/22 04:45 Discharge Plan Discharge Patient Disposition: Home Condition: Stable Prescriptions: New chlordiazepoxide HCl 25 mg capsule 25 mg PO BID 5 Days Qty: 10 0RF Continued omeprazole 40 mg capsule,delayed release(DR/EC) 40 mg PO DAILY alprazolam 0.5 mg tablet 0.5 mg PO BID PRN (Reason: Anxiety) Discharge Orders: Discharge Order (Routine); Ordered 05/30/22 Ordered By: Jane Chamberlain Referrals: primary care,provider [Other] - 7-10 days Discharge Diet: Usual diet Discharge Activity: Resume usual activity Patient Instructions: Chlordiazepoxide (By mouth), Hyponatremia (DC), Hypokalemia (DC), At-Risk Alcohol Use (DC), Alcohol Withdrawal (DC), Alcohol Dependence (DC), Alcohol Use Disorder (DC), Opioid Safety Discharge Attestations Time Spent in Discharge Care*: greater than 30 min Quality Metrics Clinical Quality Measures [ No reported AMI, CVA or VTE this stay] Coding Level of Care Code Acute Chg FW DC note Diagnoses Mental status alteration R41.82 Hyponatremia E87.1 Seizures R56.9 Alcohol withdrawal seizure F10.939; R56.9
[2022-05-30 17:44] LABS: PO2 ABG 22.2 mmHg (80.0-100.0)
[2022-05-30 17:45] LABS: Blood Gas CCRB Time 2310
== END 2022-05-30 11:04 | disposition home or self-care (01) | DRG 897 ==
LOC: ER 15:22 → ICU 20:13
PROVIDERS: Admitting Provider Student in an Organized Health Care Education/Training Program; Emergency Provider Emergency Medicine; Visit Provider Student in an Organized Health Care Education/Training Program
DX: F10.239 Alcohol dependence with withdrawal, unspecified (principal); G40.89 Other seizures; E87.1 Hypo-osmolality and hyponatremia; E86.0 Dehydration; R94.6 Abnormal results of thyroid function studies
CPT/HCPCS: 36415; 36600; 51702; 70450; 71045; 80053; 80306; 80307; 81001; 82140; 82803; 83605; 83735; 84295; 84439; 84443; 84481; 84484; 85025; 85610; 87040; 96365; 96366; 96367; 96372; 96375; 99291; J0696; J1630; J1650; J2060; J2560; J3411; J3475; J3480; J7030; J7131